=== PATIENT | male | born 1940 | race Caucasian/White ===

== ENCOUNTER → 2020-04-10 | Outpatient (CLI) | payer OTHER, BC ==
[~2020-04-10] MED LIST: AMARYL4 MG PO; ASPIRIN EC81 M1 PO; ATENOLOL 50 MG50 M1 PO; DIOVAN HCT 3201 EAC1 PO; FISHOIL PO; LIPITOR40 MG PO; MULTIVITAMINS PO; NIACIN 500 MG500 M1 PO
== END ==
LOC: SJCVC 13:48
PROVIDERS: ATTEND Internal Medicine Cardiovascular Disease
DX: R94.31 Abnormal electrocardiogram [ECG] [EKG] (principal); I11.9 Hypertensive heart disease without heart failure; I25.10 Atherosclerotic heart disease of native coronary artery without angina pectoris; E78.00 Pure hypercholesterolemia, unspecified; E11.9 Type 2 diabetes mellitus without complications; Z79.4 Long term (current) use of insulin

== ENCOUNTER → 2021-01-14 | Outpatient (CLI) | payer OTHER, BC | LOC: SJCVCIMAG 09:13 | PROVIDERS: ATTEND Internal Medicine Cardiovascular Disease | DX: I25.10 Atherosclerotic heart disease of native coronary artery without angina pectoris (principal); I10 Essential (primary) hypertension; E78.5 Hyperlipidemia, unspecified; Z79.899 Other long term (current) drug therapy ==

== ENCOUNTER → 2021-07-27 | Outpatient (CLI) | payer OTHER, BC | LOC: SJCVCIMAG 11:15 | PROVIDERS: ATTEND Internal Medicine Cardiovascular Disease | DX: R94.31 Abnormal electrocardiogram [ECG] [EKG] (principal); I08.0 Rheumatic disorders of both mitral and aortic valves; I25.10 Atherosclerotic heart disease of native coronary artery without angina pectoris; I10 Essential (primary) hypertension; E78.00 Pure hypercholesterolemia, unspecified; E11.9 Type 2 diabetes mellitus without complications; R07.89 Other chest pain; R06.00 Dyspnea, unspecified; E78.5 Hyperlipidemia, unspecified; Z79.4 Long term (current) use of insulin; Z79.82 Long term (current) use of aspirin; Z79.899 Other long term (current) drug therapy ==

== ENCOUNTER → 2021-08-02 | Outpatient (CLI) | payer OTHER, BC ==
[~2021-08-02] MED LIST changes: +EFFIENT10 MG PO; +JANUVIA100 MG PO; +LEVEMIR100 UNIT/2 SUBQ; +MACROBID 100 M100 M1 PO; +METFORMIN HCL500 M3 PO; +NORVASC5 MG PO; +OLMESARTAN-HCT1 EAC2 PO; +TOPROL XL25 MG PO
== END ==
LOC: SJCVCIMAG 11:38
PROVIDERS: ATTEND Internal Medicine Cardiovascular Disease
DX: I25.89 Other forms of chronic ischemic heart disease (principal); I25.10 Atherosclerotic heart disease of native coronary artery without angina pectoris; E11.9 Type 2 diabetes mellitus without complications; Z79.4 Long term (current) use of insulin; Z79.82 Long term (current) use of aspirin; Z79.899 Other long term (current) drug therapy

== ENCOUNTER 2021-08-05 06:30 | Outpatient (CLI) | payer OTHER, BC ==
[~2021-08-05] VITALS: Ht 167.6 cm; Wt 72.6 kg
[~2021-08-05 06:30] MED LIST changes: -EFFIENT10 MG PO; -JANUVIA100 MG PO; -LEVEMIR100 UNIT/2 SUBQ; -MACROBID 100 M100 M1 PO; -METFORMIN HCL500 M3 PO; -NORVASC5 MG PO; -OLMESARTAN-HCT1 EAC2 PO; -TOPROL XL25 MG PO
[2021-08-05 07:48] LABS: HEMATOCRIT 43.7 % (42.0-52.0); HEMOGLOBIN 14.9 gm/dL (14.0-18.0); MCH 30.7 pg (26.0-34.0); MCV 90.3 fL (80.0-100.0); RBC 4.84 mil/uL (4.50-6.00); RDW 13.3 % (10.5-14.5); WBC 9.5 thou/uL (4.0-11.0)
[2021-08-05 07:49] VITALS: BP 176/78
[2021-08-05 07:59] LABS: CALCIUM 8.9 mg/dL (8.5-10.1); CREATININE 1.2 mg/dL (0.7-1.3); POTASSIUM 3.7 mmol/L (3.5-5.1)
[2021-08-05] MEDS ORDERED: NORVASC5 MG PO (08:25)
[2021-08-05] MEDS ORDERED: LEVEMIR100 UNIT/2 SUBQ (08:26)
[2021-08-05] MEDS ORDERED: JANUVIA100 MG PO (08:27)
[2021-08-05] MEDS ORDERED: METFORMIN HCL500 M3 PO (08:28)
[2021-08-05] MEDS ORDERED: TOPROL XL25 MG PO (08:28)
[2021-08-05] MEDS ORDERED: OLMESARTAN-HCT1 EAC2 PO (08:29)
--- NOTE | 2021-08-05 08:55 | EKG ---
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
[2021-08-05 12:30] VITALS: BP 120/69
[2021-08-05 16:10] VITALS: BP 127/65
--- NOTE | 2021-08-05 18:11 | NUR ---
PT TO THE UNIT POST CATH - ORIENTED TO ROOM AND BEDSPCE - ASSESSMENT CHARTED - PT STARTED ON IV FLUIDS ORDERED. DEJAH SITE STABLE - NO HEAM OR BRUISING NOTED. PT OUT OF BED AND AMBULATING IN ROOM AND GROIN SITE REMAINS STABLE. GWEN DIET AND FLUIDS - NO CO'S OF PAIN OR NAUSEA. PT WITH NO CO'S AT THE PRESENT TIME.
[2021-08-05 20:04] VITALS: BP 148/63
[2021-08-06 00:26] VITALS: BP 140/61
--- NOTE | 2021-08-06 04:26 | NUR ---
PT ASSESSED AT START OF SHIFT. UP AD ARNALDO AND WALKING THE HALLWAYS. BSG CHECKED [address] DR [employer] AND INSULIN GIVEN. RECHECKED BSG. PT REQUESTED 15UNIT OF SLIDING SCALE STATES HE DROPS FAST. CARLITOTUS ALSO P[ROVIDED. WILL CONT TO MONITOR. CALL LIGHT AT REACH. POST CATH DRESSING C/D/I. PT DENIES CHEST PAIN.
[2021-08-06 04:40] LABS: HEMATOCRIT 41.9 % (42.0-52.0); HEMOGLOBIN 14.5 gm/dL (14.0-18.0); MCH 31.1 pg (26.0-34.0); MCHC 34.6 g/dL (28.0-37.0); MCV 90.1 fL (80.0-100.0); RBC 4.65 mil/uL (4.50-6.00); RDW 13.5 % (10.5-14.5); WBC 16.4 thou/uL (4.0-11.0)
[2021-08-06 05:34] LABS: CALCIUM 8.8 mg/dL (8.5-10.1); CREATININE 1.6 mg/dL (0.7-1.3); POTASSIUM 4.1 mmol/L (3.5-5.1); TOTAL BILIRUBIN 0.9 mg/dL (0.2-1.0); TOTAL PROTEIN 7.3 g/dL (6.4-8.2)
[2021-08-06 05:35] VITALS: BP 142/61
[2021-08-06] MEDS ORDERED: METFORMIN HCL500 M3 PO (07:24)
[2021-08-06] MEDS ORDERED: EFFIENT10 MG PO (07:30)
[2021-08-06 08:15] VITALS: BP 167/74
--- NOTE | 2021-08-06 08:57 | EKG ---
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1940 Requested By: Latisha Hare Order Number: [id number] MD: Yifan Treviño Measurements Intervals [place] Rate: 79 P: 23 TN: 165 QRS: -10 QRSD: 90 T: 60 QT: 373 QTc: 428 Interpretive Statements Sinus rhythm Left ventricular hypertrophy Nonspecific ST and T wave abnormality Compared to ECG 08/05/2021 07:30:18 Left ventricular hypertrophy now present Nonspecific change in the ST and T wave segments Electronically Signed On 08-06-2021 8:57:31 CDT by Yifan Treviño [email or web address] <ELECTRONICALLY SIGNED> By: Yifan Treviño MD, [facility] 08/06/21 0857 0739 0739 Yifan Treviño MD, [facility] /EPI
[2021-08-06 09:26] LABS: URINE BILIRUBIN NEGATIVE (Negative); URINE BLOOD 2+ (Negative); URINE CLARITY CLEAR; URINE COLOR YELLOW; URINE GLUCOSE-RANDOM* 3+ (Negative); URINE KETONES NEGATIVE (Negative); URINE LEUKOCYTES-REFLEX NEGATIVE (Negative); URINE NITRITE-REFLEX NEGATIVE (Negative); URINE PROTEIN (DIPSTICK) NEGATIVE (Negative); URINE SPECIFIC GRAVITY <= 1.005 (1.005-1.035); URINE UROBILINOGEN 0.2 E.U./dl (0.2-1.0)
[2021-08-06 09:37] LABS: CASTS None Seen /LPF (None Seen); SQUAMOUS 0-3 Few /LPF (0-3); URINE RBC 3-10 Few /HPF (NONE SEEN); URINE WBC-REFLEX None Seen /HPF (0-5)
[2021-08-06 09:38] LABS: BACTERIA-REFLEX None Seen /HPF (None Seen); CRYSTALS None Seen /LPF (None Seen)
[2021-08-06 11:50] VITALS: BP 149/62
[2021-08-06 16:00] VITALS: BP 124/52
--- NOTE | 2021-08-06 17:00 | NUR ---
ASSESSMENT CHARTED - MEDS PER NOV - GIVEN FLOMAX THIA AM AFTER PATIENT UNABLE TO VOID - BOND CATH PLACED AND 1300 CC OBTAINED. BOND REMOVED AND FLOMAX GIVEN - PATIENT HAS NOT VOIDED SINCE REMOVAL AT 1130. ENCOURAGE PO INTAKE - AMBULATION. PT TO HAVE BOND PLACED AND SENT HOME WITH LEG BAG IF HE HAS VOIDED BY THIS EVENING AND IS TO FOLLOW UP WITH DR CORONADO NEXT . WILL CONTINUE TO MONITOR.
[2021-08-06 18:17] VITALS: BP 124/52
--- NOTE | 2021-08-06 18:19 | NUR ---
THIS NURSE REINSERTED A 16F/10CC CATHETER PER ORDERS INTO PATIENT. PATIENT TOLERATED WELL BUT DID BEAR DOWN DURING INSERTION AND HAS SLIGHT BLOOD TINGE OUTPUT. PATIENT CATHETER WAS SECURED WITH A STAT LOCK. EDUCATED PATIENT ABOUT HOW TO DO CHIQUITA CARE WITH A CATHETER. EDUCATED AND DEMONSTRATED HOW TO PUT ON AND REMOVE LEG BAG AND BOND BAG. EDUCATED ABOUT DEPENDANT DRAINING AND NOT HAVING IT ABOVE YOUR BLADDER. EDUCATED PATIENTAND ABOUT S/S OF INFECTION AND WHEN TO NOTIFY PCP. VERBALIZED FULL UNDERSTANDING.
--- NOTE | 2021-08-06 19:23 | NUR ---
PT HOME THIS EVENING. REINFORCED CATH TEACHING WITH PT AND - INSTRUCTION RE HOME MEDS/ CARE AND FOLLOW UP GIVEN TO PATIENT - STATED UNDERSTANDING ON INSTRUCTION GIVEN- NO CO'S A TIME OF D/C. LEFT UNIT VIA WHEELCHAIR - HOME VIA PVT VEHICLE WITH SPOUSE.
--- NOTE | 2021-08-10 16:36 | CATHLAB ---
[facility] [place] [address] INVASIVE PROCEDURE REPORT Name: KATELYNN HERNÁNDEZ Room #: DEP CRISTIANA Castro#: [id number] Admission: 08/05/21 Attend Phys: Theo So MD, Discharge: 08/06/21 Date of : 42 Report #: [id number] THIS REPORT FOR: cc: Davonte Hernandez MD, Neal A. MD Mancuso, Gerald M. MD [facility] ~ APPROVED REPORT Study performed: 08/05/2021 08:10:39 Patient Details Patient Status: Out-Patient Room #: The patient is a 80 year-old male Event Personnel Theo So Insurance Processing Clerk, Gita [place] RTR Monitor, Joi Villa Jones, Jessica RN caterer helper Performed Art Access - R femoral artery* Left Heart Cath w/or w/o Coronaries [id number] [facility] [address] [facility] w/wo Plasty Single LAD 174619 PTCA Single Vessel RCA [id number] [place] 14750 Initial Mod Sed Same Phys/QHP Gr5y 891686 90450 Mod Sed Same Phys/QHP Ea 698140 Aortogram Abdominal Peripheral Angio [id number] Procedure Narrative The Right Groin^ was infiltrated with 1% Lidocaine subcutaneous anesthesia. A PINNACLE 6FR Sheath #[id number] sheath was inserted into the RFA^. Coronary angiography was performed using coronary diagnostic catheters. The right coronary system was accessed and visualized with a JR4 catheter. The left coronary system was accessed and visualized with a JL4 catheter. The left ventricle was accessed and visualized with a PIGTAIL catheter. Left ventriculogram was performed in 30 degree projection. An aortogram of the abdominal aorta was performed. Closure device was deployed with a Fr MYNXGRIP 6/7F #[id number]. The patient tolerated the procedure well and there were no complications associated with the procedure. There was no hematoma. Intraoperative Conscious Sedation Sedation start time: 9:29 Case end Time: 11:10 Fentanyl 150 mcg Versed [address] [address] INVASIVE PROCEDURE REPORT Name: KATELYNN HERNÁNDEZ [facility] [id number] Admission: 08/05/21 Attend Phys: Theo So, Discharge: 08/06/21 Date of : 42 Report #: [id number] Fluoro Time: 25.70 minutes Dose: DAP 55293.70 cGycm2 4689 mGy Contrast Type and Amount: Visipaque 265 ml Hemodynamics The aortic pressure is 174/66 mmHg with a mean of 107 mmHg. The left ventricular pressure is 157/8 mmHg with a mean of mmHg. The left ventricular end diastolic pressure is 17 mmHg. PCI Technique Lesion Percutaneous coronary intervention was performed on the proximal left anterior descending artery segment. A LAUNCHER 6FR EBU 3.5 #[id number] Guide Catheter was used to engage the ostium. A Luge Wire .014 x 182CM #[id number] Interventional Guidewire was used to cross the lesion. BALLOON DILATION A Balloon catheter Sprinter OTW 2.5 x 12 #[id number] was inserted and inflated up to 14.00atm for 51seconds. Additional Inflation: 14.00atm for 25seconds. STENT DEPLOYMENT A drug-eluting stent RESOLUTE MARGARETTE OTW 2.75 X 12 #[id number] was inserted and inflated up to 16.00atm for 47seconds. POST STENT DEPLOYMENT BALLOON DILATION A Balloon catheter TREK NC OTW 3.0 X 8 was inserted and inflated up to 16.00atm for 31seconds. PCI Technique Lesion 2 Percutaneous Coronary Intervention was performed on the mid right coronary artery. A LAUNCHER 6FR 3DRC #[id number] Guide Catheter was used to engage the ostium. A Luge Wire .014 x 182CM #[id number] Interventional Guidewire was used to cross the lesion. Balloon Dilation A Balloon catheter Sprinter OTW 2.25 x 20 #[id number] was inserted and inflated up to 18.00atm for 41seconds. Additional Inflation: 18.00atm for 14seconds. Additional Inflation: 12.00atm for 28seconds. Additional Inflation: 18 gabriel for 28 seconds. Additional Inflation: 20 gabriel for 31 seconds. Conclusion #1 Sessile PTCA stent of a high-grade proximal LAD lesion with placement of a 2.75 x 12 resolute Margarette postdilated 2.9 mm JOSE grade III flow in a moderately diseased vessel which extends around the [address] [address] INVASIVE PROCEDURE REPORT Name: KATELYNN HERNÁNDEZ Room #: [facility] Gloria#: [id number] Admission: 08/05/21 Attend Phys: Theo So, Discharge: 08/06/21 Date of : 42 Report #: [id number] apex. #2 successful PTCA of a high-grade proximal mid RCA lesion which is underestimated significant calcification. Unable to fully expand the balloon with a 2-5 balloon. Then difficult to deliver with a noncompliant balloon to the segment. This will need rotational atherectomy for the extent of the calcium. There was some moderate improvement in the 60 to 70% range post PTCA. JOSE grade III flow. Will arrange for Rotablator procedure and stenting at later date. #3 left main is large mildly calcified widely patent giving rise to LAD and the circumflex. #4 the circumflex is nondominant also with moderate proximal calcification this is a large system although technically nondominant no occlusive disease. Moderate disease in both OM branches #5 normal left ventricular size and systolic function EF 60%. #6 abdominal aorta shows moderate aortic ectasia and calcification with moderate narrowing in the infrarenal segment but no definite aneurysm. Recommendations and plan: Continue aggressive risk factor modification. Dual antiplatelet therapy. Patient to CCU in stable condition. Plan on rota stent procedure to RCA 4 to 6 weeks. <ELECTRONICALLY SIGNED> By: Theo So MD, FACC 08/10/21 1636 35 35 Theo So MD, FACC /INF
== END 2021-08-06 19:23 | disposition home or self-care (01) ==
LOC: CATH 06:30 → 2N 06:30 → CATH 07:51
PROVIDERS: Family Medicine; Nurse Practitioner Adult Health; ATTEND Internal Medicine Cardiovascular Disease
DX: I25.10 Atherosclerotic heart disease of native coronary artery without angina pectoris (principal); I77.811 Abdominal aortic ectasia; I10 Essential (primary) hypertension; E11.9 Type 2 diabetes mellitus without complications; E78.00 Pure hypercholesterolemia, unspecified; K21.9 Gastro-esophageal reflux disease without esophagitis; Z98.890 Other specified postprocedural states; Z79.899 Other long term (current) drug therapy; Z79.82 Long term (current) use of aspirin
CPT/HCPCS: 10797

== ENCOUNTER 2021-08-09 20:22 | Emergency (ER) | payer OTHER, BC ==
[~2021-08-09] VITALS: Ht 167.6 cm; Wt 72.6 kg
[~2021-08-09 20:22] MED LIST changes: +EFFIENT10 MG PO; +JANUVIA100 MG PO; +LEVEMIR100 UNIT/2 SUBQ; +METFORMIN HCL500 M3 PO; +NORVASC5 MG PO; +OLMESARTAN-HCT1 EAC2 PO; +TOPROL XL25 MG PO
[2021-08-09 21:32] LABS: URINE BILIRUBIN NEGATIVE (Negative); URINE BLOOD 3+ (Negative); URINE CLARITY CLEAR; URINE COLOR YELLOW; URINE GLUCOSE-RANDOM* TRACE (Negative); URINE KETONES NEGATIVE (Negative); URINE LEUKOCYTES-REFLEX NEGATIVE (Negative); URINE NITRITE-REFLEX NEGATIVE (Negative); URINE PROTEIN (DIPSTICK) NEGATIVE (Negative); URINE UROBILINOGEN 0.2 E.U./dl (0.2-1.0)
[2021-08-09] MEDS ORDERED: MACROBID 100 M100 M1 PO (21:48)
[2021-08-09 21:59] LABS: SQUAMOUS 0-3 Few /LPF (0-3)
[2021-08-09 22:01] LABS: BACTERIA-REFLEX 1-9 Few /HPF (None Seen); CASTS None Seen /LPF (None Seen); CRYSTALS None Seen /LPF (None Seen); URINE WBC-REFLEX 0-5 Rare /HPF (0-5)
[2021-08-09 22:11] VITALS: BP 148/74
== END 2021-08-09 22:12 | disposition home or self-care (01) ==
LOC: ER 20:22
PROVIDERS: Nurse Practitioner
DX: R33.9 Retention of urine, unspecified (principal); K21.9 Gastro-esophageal reflux disease without esophagitis; E11.9 Type 2 diabetes mellitus without complications; E78.00 Pure hypercholesterolemia, unspecified; I10 Essential (primary) hypertension; Z79.4 Long term (current) use of insulin; Z79.82 Long term (current) use of aspirin; Z79.1 Long term (current) use of non-steroidal anti-inflammatories (NSAID); Z79.891 Long term (current) use of opiate analgesic; Z79.899 Other long term (current) drug therapy

== ENCOUNTER → 2021-09-09 | Outpatient (CLI) | payer OTHER, BC ==
[~2021-09-09] MED LIST changes: +MACROBID 100 M100 M1 PO
== END ==
LOC: SJCVC 12:15
PROVIDERS: ATTEND Internal Medicine Cardiovascular Disease
DX: I25.10 Atherosclerotic heart disease of native coronary artery without angina pectoris (principal); I10 Essential (primary) hypertension; E78.00 Pure hypercholesterolemia, unspecified; E11.9 Type 2 diabetes mellitus without complications; E78.5 Hyperlipidemia, unspecified; I65.29 Occlusion and stenosis of unspecified carotid artery; Z95.1 Presence of aortocoronary bypass graft; Z95.818 Presence of other cardiac implants and grafts; Z79.4 Long term (current) use of insulin; Z79.82 Long term (current) use of aspirin; Z79.899 Other long term (current) drug therapy; Z88.8 Allergy status to other drugs, medicaments and biological substances